=== PATIENT | male | born 1995 | race Caucasian/White ===

== ENCOUNTER → 2021-04-20 11:54 | Outpatient (BNVA) | payer OTHER, SELFPAY | PROVIDERS: Visit Provider Nurse Practitioner Family | DX: Z20.822 Contact with and (suspected) exposure to COVID-19 (principal) | CPT/HCPCS: 87635 ==

== ENCOUNTER → 2021-06-23 18:14 | Outpatient (BNVA) | payer SELFPAY | PROVIDERS: Visit Provider Nurse Practitioner | DX: S67.190A Crushing injury of right index finger, initial encounter (principal); W23.0XXA Caught, crushed, jammed, or pinched between moving objects, initial encounter; M79.89 Other specified soft tissue disorders | CPT/HCPCS: 73140 ==

== ENCOUNTER → 2021-08-21 13:15 | Outpatient (BNVA) | payer OTHER, SELFPAY | PROVIDERS: Visit Provider Nurse Practitioner Family | DX: Z20.822 Contact with and (suspected) exposure to COVID-19 (principal) | CPT/HCPCS: 87635 ==

== ENCOUNTER 2022-07-18 16:41 | Emergency (ER) | payer SELFPAY ==
[2022-07-18 16:42] VITALS: BP 129/77; PULSE 81; RESP 18; TEMP 36.4; O2SAT 97; BMI 21.2
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
[2022-07-18 18:24] VITALS: BP 124/63; PULSE 75; RESP 14; O2SAT 100
== END 2022-07-18 18:26 | disposition home or self-care (01) ==
PROVIDERS: Emergency Provider Nurse Practitioner Family
DX: S01.511A Laceration without foreign body of lip, initial encounter (principal); S01.81XA Laceration without foreign body of other part of head, initial encounter; S99.911A Unspecified injury of right ankle, initial encounter; F17.210 Nicotine dependence, cigarettes, uncomplicated; V59.40XA Driver of pick-up truck or van injured in collision with unspecified motor vehicles in traffic accident, initial encounter
CPT/HCPCS: 12013; 70150; 73610; 99283